=== PATIENT | male | born 1970 | race Hispanic/Latino ===

== ENCOUNTER 2022-10-10 07:54 | Outpatient (CLI) | payer OTHER | END 2022-10-10 07:55 | disposition home or self-care (01) | LOC: MADULT 07:54 | DX: N50.819 Testicular pain, unspecified (principal); N43.3 Hydrocele, unspecified | CPT/HCPCS: 76870; 93976 ==

== ENCOUNTER 2023-06-04 07:53 | Emergency (ER) | payer SELFPAY ==
[2023-06-04] MEDS ORDERED: predniSONE 20 MG TAB ONE (08:21)
[2023-06-04] MEDS ORDERED: diphenhydrAMINE 25 MG CAP ONE (08:21)
[2023-06-04] MEDS ORDERED: Famotidine 20 MG TAB ONE (08:21)
== END 2023-06-04 08:49 | disposition home or self-care (01) ==
LOC: MADERS 07:53
DX: L50.0 Allergic urticaria (principal); R21 Rash and other nonspecific skin eruption
CPT/HCPCS: 99282; J7512

== ENCOUNTER 2023-10-19 19:03 | Emergency (ER) | payer SELFPAY ==
[2023-10-19] MEDS ORDERED: Fluconazole 100 MG TAB ONE (20:04)
== END 2023-10-19 20:10 | disposition home or self-care (01) ==
LOC: MADERS 19:03
DX: B35.4 Tinea corporis (principal)
CPT/HCPCS: 99282